=== PATIENT | male | born 1955 | race Caucasian/White ===

== ENCOUNTER → 2018-03-03 08:13 | Outpatient (CLI) | payer BC, MEDICARE, SELFPAY ==
--- NOTE | 2018-03-03 08:30 | MR_ITS ---
MR lumbar spine wo/w con COMPARISON: None HISTORY: Low back pain with vertical locking TECHNIQUE: Standard sagittal and axial sequences were performed along with a myelogram sequence. FINDINGS: There is normal curvature and alignment. The marrow signal is normal in all lumbar vertebrae. There is no evidence of compression fracture. There is decreased signal of the L2-3, L3-4, L4-5 and L5-S1 disc. This is consistent with desiccation. There is disc space narrowing at the L4-5 and L5-S1 levels. There is broad-based diffuse bulging of the annulus fibrosis at the L3-4 level with a small left paracentral disc protrusion combined with hypertrophic facet changes results in bilateral neural foraminal narrowing at this level. This is slightly more pronounced left side than right. The myelogram sequence shows prominent defects of the CSF signal bilaterally at this level. IMPRESSION: Mild multilevel degenerative changes with diffuse disc bulge and focal left paracentral bulge. L3-4 level as described above
[2018-03-03 09:00] LABS: Blood Urea Nitrogen 17 mg/dL (7-18); Creatinine,Serum 0.84 mg/dL (0.70-1.30); Estimated Glomerular Filt Rate 92 ml/min (>60); GFR (African American) 112 ML/MIN (>60)
== END ==
PROVIDERS: Family Provider Family Medicine; Visit Provider Family Medicine
DX: M54.16 Radiculopathy, lumbar region (principal)
CPT/HCPCS: 36415; 72158; 76376; 82565; 84520; A9576

== ENCOUNTER → 2018-03-31 08:51 | Outpatient (POV) | payer BC, MEDICARE, SELFPAY ==
[2018-03-31 09:00] VITALS: BP 184/72; PULSE 78; RESP 18; TEMP 36.6; O2SAT 98
--- NOTE | 2018-03-31 09:27 | HMH.PMCON ---
Assessment and Plan (1) Bursitis Current visit: Yes Status: Chronic Category: Medical Code(s): M71.9 - Bursopathy, unspecified (2) Sacroiliitis Current visit: Yes Status: Chronic Category: Medical Code(s): M46.1 - Sacroiliitis, not elsewhere classified - Assessment and plan all Dx Assessment and Plan for all problems:: We will plan a right SI joint injection along with a right trochanteric bursa injection. I believe that this would be beneficial for the patient patient's tried and failed anti-inflammatories, medications, physical therapy. Patient continues to do home stretching. This note was dictated using voice recognition software and may contain errors or omissions HPI - Data of Consult Consult date: 03/31/18 Requesting Physician: Abida Alcantara APRN Primary Care Provider: Alexander Martin MD Family Provider: Alexander Martin MD - Consult Narrative Reason for consult: Consultation in regards to right hip pain History of present illness: Mr. Willett is a 62 year old male resents today for consultation in regards to his low back and right leg pain. Patient states most of his pain is in his right hip and leg. Patient rates his pain a 5 out of 10 today. Patient states he has numbness and tingling down his right leg at times all the way to his toes. Patient has had cervical and lumbar surgery in the past. Patient has had injections in the lumbar spine without as much relief. Patient has tried and failed physical therapy. Patient also tried Celebrex, Cymbalta, Bonifay, trazodone. Patient states that repositioning does help decrease his pain at times. All activity makes it worse. CC: Abida Alcantara APRN [facility] History I have reviewed the patient's past medical history: Yes Medical History: Reports:: Diabetes Mellitus Type 2, Hyperlipidemia, Hypertension Denies:: Cancer, Diabetes Mellitus Type 1, MRSA Other Medical History: Reports: Arthritis, Thyroid Disease Other Surgeries: Yes: Thyroidectomy Amputation: Yes - *Social History Educational Level: Attended High School Smoking Status: Current every day smoker Tobacco Type: smokeless tobacco Alcohol Intake: never Occupational Status: employed Housing: house Household Members: spouse - Psychiatric History Expresses thoughts of harming self/others: None Suicide Plan Description: No Plan *Family Hx:: Unable to obtain Review of Systems - Review of Systems ROS General: no recent weight change, no fever, no sleep disturbances Respiratory: no cough, no shortness of air, no recurring pulmonary infections Cardiovascular/Peripheral Vascular: No chest pain, No palpitations, no edema, no shortness of breath. Gastrointestinal: no incontinence, normal bowel movements reported Genitourinary: no incontinence Musculoskeletal: Back pain, right hip pain, SI joint pain Psychiatric: normal mood/ affect, [denies depression], [denies anxiety] Neurological: [denies weakness in extremities], [denies balance issues] Meds Allergies Allergy/AdvReac Type Severity Reaction Status Date / Time PCN (PENICILLIN) Allergy Intermediate Uncoded 11/18/17 14:41 SULFA (SULFONAMIDE) Allergy Intermediate Uncoded 11/18/17 14:41 Objective Vital signs: Temp Pulse Resp BP Pulse Ox 97.8 F 78 18 184/72 98 03/31/18 09:00 03/31/18 09:00 03/31/18 09:00 03/31/18 09:00 03/31/18 09:00 Narrative: Physical Exam General: Alert and oriented x3, no acute distress, pleasant and cooperative, [on room air] Lungs: Resps E/U, Symmetrical chest expansion, Eyes: PERRL Musculoskeletal: Flexion and extension of lumbar spine somewhat guarded secondary to pain, deep tendon reflexes normal, strength in upper and lower extremities [5/5], abnormal gait noted, left leg amputation, prosthetic noted, extreme point tenderness over right SI and trochanteric bursa. Positive Higinio's test on the right side Neurological: speech clear,
--- NOTE | 2018-03-31 09:32 | P.CONS_ITS ---
Assessment and Plan (1) Bursitis Current visit: Yes Status: Chronic Category: Medical Code(s): M71.9 - Bursopathy, unspecified (2) Sacroiliitis Current visit: Yes Status: Chronic Category: Medical Code(s): M46.1 - Sacroiliitis, not elsewhere classified - Assessment and plan all Dx Assessment and Plan for all problems:: We will plan a right SI joint injection along with a right trochanteric bursa injection. I believe that this would be beneficial for the patient patient's tried and failed anti-inflammatories, medications, physical therapy. Patient continues to do home stretching. This note was dictated using voice recognition software and may contain errors or omissions HPI - Data of Consult Consult date: 03/31/18 Requesting Physician: Abida Alcantara APRN Primary Care Provider: Alexander Martin MD Family Provider: Alexander Martin MD - Consult Narrative Reason for consult: Consultation in regards to right hip pain History of present illness: Mr. Willett is a 62 year old male resents today for consultation in regards to his low back and right leg pain. Patient states most of his pain is in his right hip and leg. Patient rates his pain a 5 out of 10 today. Patient states he has numbness and tingling down his right leg at times all the way to his toes. Patient has had cervical and lumbar surgery in the past. Patient has had injections in the lumbar spine without as much relief. Patient has tried and failed physical therapy. Patient also tried Celebrex, Cymbalta, Holliday, trazodone. Patient states that repositioning does help decrease his pain at times. All activity makes it worse. CC: Abida Alcantara APRN [facility] History I have reviewed the patient's past medical history: Yes Medical History: Reports:: Diabetes Mellitus Type 2, Hyperlipidemia, Hypertension Denies:: Cancer, Diabetes Mellitus Type 1, MRSA Other Medical History: Reports: Arthritis, Thyroid Disease Other Surgeries: Yes: Thyroidectomy Amputation: Yes - *Social History Educational Level: Attended High School Smoking Status: Current every day smoker Tobacco Type: smokeless tobacco Alcohol Intake: never Occupational Status: employed Housing: house Household Members: spouse - Psychiatric History Expresses thoughts of harming self/others: None Suicide Plan Description: No Plan *Family Hx:: Unable to obtain Review of Systems - Review of Systems ROS General: no recent weight change, no fever, no sleep disturbances Respiratory: no cough, no shortness of air, no recurring pulmonary infections Cardiovascular/Peripheral Vascular: No chest pain, No palpitations, no edema, no shortness of breath. Gastrointestinal: no incontinence, normal bowel movements reported Genitourinary: no incontinence Musculoskeletal: Back pain, right hip pain, SI joint pain Psychiatric: normal mood/ affect, [denies depression], [denies anxiety] Neurological: [denies weakness in extremities], [denies balance issues] Meds Allergies Allergy/AdvReac Type Severity Reaction Status Date / Time PCN (PENICILLIN) Allergy Intermediate Uncoded 11/18/17 14:41 SULFA (SULFONAMIDE) Allergy Intermediate Uncoded 11/18/17 14:41 Objective Vital signs: Temp Pulse Resp BP Pulse Ox 97.8 F 78 18 184/72 98 03/31/18 09:00 03/31/18 09:00 03/31/18 09:00 03/31/18 09:00 03/31/18 09:00 Narrative: Physical
== END ==
PROVIDERS: Family Provider Family Medicine; PCP Family Medicine; Visit Provider Clinical Nurse Specialist Family Health
DX: M71.9 Bursopathy, unspecified (principal); M46.1 Sacroiliitis, not elsewhere classified
CPT/HCPCS: 99202

== ENCOUNTER → 2018-05-05 08:14 | Outpatient (POV) | payer BC, MEDICARE, SELFPAY ==
[2018-05-05 08:38] VITALS: BP 175/78; PULSE 65; RESP 20; O2SAT 99; BMI 31.4
--- NOTE | 2018-05-05 09:19 | HMH.PAINSOAP ---
[facility] Pain Management SOAP Note Subjective:: Patient is a pleasant 62-year-old white male who presents today after right trochanteric bursa injection and right SI joint injection. Patient states it helped for several weeks. Patient states his pain is beginning to return however it is not at the same intensity that it was. Patient is currently on anti-inflammatories. Patient and I discussed potentially doing a lumbar epidural steroid injection however he feels like it would be beneficial to repeat the right bursa and SI joint injection. I agree with him. Patient has had a neurostimulator in the past he is uninterested in this at this time. Patient is unable to take gabapentin. Patient rates his pain a 6 out of 10 today. ROS General: no recent weight change, no fever, no sleep disturbances Respiratory: no cough, no shortness of air, no recurring pulmonary infections Cardiovascular/Peripheral Vascular: No chest pain, No palpitations, no edema, no shortness of breath. Gastrointestinal: no incontinence, normal bowel movements reported Genitourinary: no incontinence Musculoskeletal: Right SI joint pain, right hip pain Psychiatric: normal mood/ affect Neurological: [denies weakness in extremities], [denies balance issues] Objective:: Physical Exam General: Alert and oriented x3, no acute distress, pleasant and cooperative, [on room air] Lungs: Resps E/U, Symmetrical chest expansion, Eyes: PERRL Musculoskeletal: Range of motion right hip somewhat guarded secondary to pain, deep tendon reflexes normal, strength in upper and lower extremities [5/5], [abnormal gait noted], positive Higinio's test on the right side, extreme point tenderness over the right greater trochanteric bursa Neurological: speech clear, entertainment reporter equal, no gross sensory deficits Assessment:: Sacroiliitis, trochanteric bursitis Plan:: We will repeat a right SI joint injection along with a right greater trochanteric bursa injection. I believe this would be beneficial given the efficacy of it in the past. Patient is currently on an anti-inflammatory regimen. Patient's tried and failed physical therapy. Patient is not on any anticoagulation therapy. I will follow-up with this patient after his injection. This note was dictated using voice recognition software and may contain errors or omissions
--- NOTE | 2018-05-05 09:23 | P.CONS_ITS ---
[facility] Pain Management SOAP Note Subjective:: Patient is a pleasant 62-year-old white male who presents today after right trochanteric bursa injection and right SI joint injection. Patient states it helped for several weeks. Patient states his pain is beginning to return however it is not at the same intensity that it was. Patient is currently on anti-inflammatories. Patient and I discussed potentially doing a lumbar epidural steroid injection however he feels like it would be beneficial to repeat the right bursa and SI joint injection. I agree with him. Patient has had a neurostimulator in the past he is uninterested in this at this time. Patient is unable to take gabapentin. Patient rates his pain a 6 out of 10 today. ROS General: no recent weight change, no fever, no sleep disturbances Respiratory: no cough, no shortness of air, no recurring pulmonary infections Cardiovascular/Peripheral Vascular: No chest pain, No palpitations, no edema, no shortness of breath. Gastrointestinal: no incontinence, normal bowel movements reported Genitourinary: no incontinence Musculoskeletal: Right SI joint pain, right hip pain Psychiatric: normal mood/ affect Neurological: [denies weakness in extremities], [denies balance issues] Objective:: Physical Exam General: Alert and oriented x3, no acute distress, pleasant and cooperative, [ on room air] Lungs: Resps E/U, Symmetrical chest expansion, Eyes: PERRL Musculoskeletal: Range of motion right hip somewhat guarded secondary to pain, deep tendon reflexes normal, strength in upper and lower extremities [5/5], [ abnormal gait noted], positive Higinio's test on the right side, extreme point tenderness over the right greater trochanteric bursa Neurological: speech clear, deposition reporter equal, no gross sensory deficits Assessment:: Sacroiliitis, trochanteric bursitis Plan:: We will repeat a right SI joint injection along with a right greater trochanteric bursa injection. I believe this would be beneficial given the efficacy of it in the past. Patient is currently on an anti-inflammatory regimen. Patient's tried and failed physical therapy. Patient is not on any anticoagulation therapy. I will follow-up with this patient after his injection. This note was dictated using voice recognition software and may contain errors or omissions
== END ==
PROVIDERS: Family Provider Family Medicine; PCP Family Medicine; Visit Provider Clinical Nurse Specialist Family Health
DX: M70.61 Trochanteric bursitis, right hip (principal)
CPT/HCPCS: 99212

== ENCOUNTER → 2018-06-08 10:34 | Outpatient (POV) | payer BC, MEDICARE, SELFPAY ==
[2018-06-08 11:06] VITALS: BP 172/84; PULSE 78; RESP 18; O2SAT 99; BMI 31.4
--- NOTE | 2018-06-08 12:00 | HMH.PAINSOAP ---
[facility] Pain Management SOAP Note Subjective:: Patient is a pleasant 62-year-old white male who we are treating for right-sided hip pain. Patient is following up after right SI joint injection and right trochanteric bursa injection. Patient states he got 2 weeks of good relief up to 90% however it is just not lasting. Patient does have an amputation of his left leg and he does have an antalgic gait. Patient and I discussed a rhizotomy of the right SI joint he is interested in this. He rates his pain a 4 out of 10. Patient states that he is unable to take gabapentin he is on Cymbalta however. Patient is on Oxford 5 mg 1 p.o. 3 times daily from his primary care physician. Patient and I also discussed compounding cream. ROS General: no recent weight change, no fever, no sleep disturbances Respiratory: no cough, no shortness of air, no recurring pulmonary infections Cardiovascular/Peripheral Vascular: No chest pain, No palpitations, no edema, no shortness of breath. Gastrointestinal: no incontinence, normal bowel movements reported Genitourinary: no incontinence Musculoskeletal: Right SI joint pain right hip pain Psychiatric: normal mood/ affect Neurological: [denies weakness in extremities], [denies balance issues] Objective:: Physical Exam General: Alert and oriented x3, no acute distress, pleasant and cooperative, [on room air] Lungs: Resps E/U, Symmetrical chest expansion, Eyes: PERRL Musculoskeletal: Flexion and extension of lumbar spine somewhat guarded secondary to pain, deep tendon reflexes normal, antalgic gait, left lower leg amputation. Patient does use prosthetic leg. Patient has a positive Higinio's test on the right side. Neurological: speech clear, art dealer equal, no gross sensory deficits Assessment:: Sacroiliitis, bursitis Plan:: We will schedule RFA of the right SI joint. I believe that this would be beneficial given the patient's good results with the injections. I will follow-up with the patient after his RFA. Patient and I did briefly discuss intrathecal therapy. Patient may be a candidate in the future for this. Patient's tried and failed physical therapy, stretching, anti-inflammatories, medications. I will also order a compounding cream to help with his knee and hip pain. I will follow-up with this patient after his RFA. This note was dictated using voice recognition software and may contain errors or omissions
--- NOTE | 2018-06-08 12:04 | P.CONS_ITS ---
[facility] Pain Management SOAP Note Subjective:: Patient is a pleasant 62-year-old white male who we are treating for right- sided hip pain. Patient is following up after right SI joint injection and right trochanteric bursa injection. Patient states he got 2 weeks of good relief up to 90% however it is just not lasting. Patient does have an amputation of his left leg and he does have an antalgic gait. Patient and I discussed a rhizotomy of the right SI joint he is interested in this. He rates his pain a 4 out of 10. Patient states that he is unable to take gabapentin he is on Cymbalta however. Patient is on Holly 5 mg 1 p.o. 3 times daily from his primary care physician. Patient and I also discussed compounding cream. ROS General: no recent weight change, no fever, no sleep disturbances Respiratory: no cough, no shortness of air, no recurring pulmonary infections Cardiovascular/Peripheral Vascular: No chest pain, No palpitations, no edema, no shortness of breath. Gastrointestinal: no incontinence, normal bowel movements reported Genitourinary: no incontinence Musculoskeletal: Right SI joint pain right hip pain Psychiatric: normal mood/ affect Neurological: [denies weakness in extremities], [denies balance issues] Objective:: Physical Exam General: Alert and oriented x3, no acute distress, pleasant and cooperative, [ on room air] Lungs: Resps E/U, Symmetrical chest expansion, Eyes: PERRL Musculoskeletal: Flexion and extension of lumbar spine somewhat guarded secondary to pain, deep tendon reflexes normal, antalgic gait, left lower leg amputation. Patient does use prosthetic leg. Patient has a positive Higinio's test on the right side. Neurological: speech clear, dictaphone mechanic equal, no gross sensory deficits Assessment:: Sacroiliitis, bursitis Plan:: We will schedule RFA of the right SI joint. I believe that this would be beneficial given the patient's good results with the injections. I will follow- up with the patient after his RFA. Patient and I did briefly discuss intrathecal therapy. Patient may be a candidate in the future for this. Patient's tried and failed physical therapy, stretching, anti-inflammatories, medications. I will also order a compounding cream to help with his knee and hip pain. I will follow-up with this patient after his RFA. This note was dictated using voice recognition software and may contain errors or omissions
== END ==
PROVIDERS: Family Provider Family Medicine; PCP Family Medicine; Visit Provider Clinical Nurse Specialist Family Health
DX: M70.61 Trochanteric bursitis, right hip (principal)
CPT/HCPCS: 99212

== ENCOUNTER → 2018-07-20 09:59 | Outpatient (POV) | payer BC, MEDICARE, SELFPAY ==
[2018-07-20 10:07] VITALS: BP 167/74; PULSE 72; RESP 18; O2SAT 98; BMI 31.4
--- NOTE | 2018-07-20 10:35 | HMH.PAINSOAP ---
[facility] Pain Management SOAP Note Subjective:: Patient is a pleasant 62-year-old white male who we are treating for chronic right-sided sacroiliitis. Patient states that after his radio frequency ablation of the right SI joint he has had worsening pain. Patient has tried and failed a neurostimulator. I did talk to him about maybe getting a consultation in regards to a SI joint fusion. Patient does not know if he wants to proceed with this. He rates his pain a 9 out of 10 today. ROS General: no recent weight change, no fever, no sleep disturbances Respiratory: no cough, no shortness of air, no recurring pulmonary infections Cardiovascular/Peripheral Vascular: No chest pain, No palpitations, no edema, no shortness of breath. Gastrointestinal: no incontinence, normal bowel movements reported Genitourinary: no incontinence Musculoskeletal: SI joint pain Psychiatric: normal mood/ affect, Neurological: [denies weakness in extremities], [denies balance issues] Objective:: Physical Exam General: Alert and oriented x3, no acute distress, pleasant and cooperative, [on room air] Lungs: Resps E/U, Symmetrical chest expansion, Eyes: PERRL Musculoskeletal: Flexion and extension of lumbar spine somewhat guarded secondary to pain, deep tendon reflexes normal, strength in upper and lower extremities [5/5], [abnormal gait noted] Neurological: speech clear, drug abuse resistance education officer equal, no gross sensory deficits Assessment:: Chronic sacroiliitis Plan:: We will follow-up with this patient on an as-needed basis. I gave him the option to be referred for a surgical consult. Patient does not know if he would go forward with this. Patient states he is tried and failed a neurostimulator. We will call him in a [employer] Dosepak to see if this helps him with his increased pain. This note was dictated using voice recognition software and may contain errors or omissions
--- NOTE | 2018-07-20 10:38 | P.CONS_ITS ---
[facility] Pain Management SOAP Note Subjective:: Patient is a pleasant 62-year-old white male who we are treating for chronic right-sided sacroiliitis. Patient states that after his radio frequency ablation of the right SI joint he has had worsening pain. Patient has tried and failed a neurostimulator. I did talk to him about maybe getting a consultation in regards to a SI joint fusion. Patient does not know if he wants to proceed with this. He rates his pain a 9 out of 10 today. ROS General: no recent weight change, no fever, no sleep disturbances Respiratory: no cough, no shortness of air, no recurring pulmonary infections Cardiovascular/Peripheral Vascular: No chest pain, No palpitations, no edema, no shortness of breath. Gastrointestinal: no incontinence, normal bowel movements reported Genitourinary: no incontinence Musculoskeletal: SI joint pain Psychiatric: normal mood/ affect, Neurological: [denies weakness in extremities], [denies balance issues] Objective:: Physical Exam General: Alert and oriented x3, no acute distress, pleasant and cooperative, [ on room air] Lungs: Resps E/U, Symmetrical chest expansion, Eyes: PERRL Musculoskeletal: Flexion and extension of lumbar spine somewhat guarded secondary to pain, deep tendon reflexes normal, strength in upper and lower extremities [5/5], [abnormal gait noted] Neurological: speech clear, mail room clerk equal, no gross sensory deficits Assessment:: Chronic sacroiliitis Plan:: We will follow-up with this patient on an as-needed basis. I gave him the option to be referred for a surgical consult. Patient does not know if he would go forward with this. Patient states he is tried and failed a neurostimulator. We will call him in a [employer] Dosepak to see if this helps him with his increased pain. This note was dictated using voice recognition software and may contain errors or omissions
== END ==
PROVIDERS: Family Provider Family Medicine; PCP Family Medicine; Visit Provider Clinical Nurse Specialist Family Health
DX: M46.1 Sacroiliitis, not elsewhere classified (principal)
CPT/HCPCS: 99213

== ENCOUNTER → 2018-11-16 08:51 | Outpatient (CLI) | payer BC, MEDICARE, SELFPAY ==
[2018-11-16 11:20] LABS: Prostate Specific Ag, Diagnost < 0.05 ng/mL (0.0-4.0)
== END ==
PROVIDERS: PCP Family Medicine; Visit Provider Urology
DX: C61 Malignant neoplasm of prostate (principal)
CPT/HCPCS: 36415; 84153

== ENCOUNTER → 2019-01-18 08:46 | Outpatient (CLI) | payer BC, MEDICARE, SELFPAY ==
[2019-01-20 07:47] LABS: PSA, Free <0.01 ng/mL; Prostate Specific Ag <0.1 ng/mL (0.0-4.0)
== END ==
PROVIDERS: Visit Provider Urology
DX: C61 Malignant neoplasm of prostate (principal)
CPT/HCPCS: 36415; 84153; 84154

== ENCOUNTER → 2019-01-27 12:55 | Outpatient (CLI) | payer BC, MEDICARE, SELFPAY ==
--- NOTE | 2019-01-27 13:07 | XR_ITS ---
XR hip RT 2-3V w/pelvis HISTORY: ITS.REASON: right hip pain ORDERING PHYSICIAN: Yana Reed MD PATIENT AGE: 63 years COMPARISON: 05/23/2017 FINDINGS: No fracture or dislocation is evident. No significant degenerative change. No lytic or blastic change. Unremarkable soft tissues IMPRESSION: Negative hip . No change with no acute finding
== END ==
PROVIDERS: PCP Family Medicine; Visit Provider Orthopaedic Surgery
DX: M25.551 Pain in right hip (principal)
CPT/HCPCS: 73502

== ENCOUNTER → 2019-04-15 13:05 | Outpatient (CLI) | payer BC, MEDICARE, SELFPAY ==
[2019-04-15 16:44] LABS: Prostate Specific Ag, Diagnost 0 ng/mL (0.0-4.0)
== END ==
PROVIDERS: Visit Provider Urology
DX: C61 Malignant neoplasm of prostate (principal)
CPT/HCPCS: 36415; 84153

== ENCOUNTER → 2019-05-13 08:56 | Outpatient (CLI) | payer BC, MEDICARE, SELFPAY ==
[2019-05-17 03:13] LABS: Testosterone, Total, LC/MS 122.4 ng/dL (264.0-916.0)
== END ==
PROVIDERS: Visit Provider Family Medicine
DX: E29.1 Testicular hypofunction (principal)
CPT/HCPCS: 36415; 84403

== ENCOUNTER → 2019-07-14 09:28 | Outpatient (CLI) | payer BC, MEDICARE, SELFPAY ==
[2019-07-14 17:03] LABS: Prostate Specific Ag, Diagnost < 0.05 ng/mL (0.0-4.0)
== END ==
PROVIDERS: Visit Provider Urology
DX: C61 Malignant neoplasm of prostate (principal)
CPT/HCPCS: 36415; 84153

== ENCOUNTER → 2019-10-08 13:10 | Outpatient (CLI) | payer BC, MEDICARE, SELFPAY ==
[2019-10-08 14:54] LABS: Prostate Specific Ag, Diagnost 0 ng/mL (0.0-4.0)
== END ==
PROVIDERS: Visit Provider Urology
DX: C61 Malignant neoplasm of prostate (principal)
CPT/HCPCS: 36415; 84153

== ENCOUNTER → 2019-11-02 06:30 | Outpatient (CLI) | payer BC, MEDICARE, SELFPAY ==
--- NOTE | 2019-11-02 | CA_ITS ---
APPROVED REPORT Exam: Pharmacologic Technologist: Cele Mason Ht: 5 ft 11 in Wt: 230 lbs BSA: 2.24 m2 HR: 63 bpm BP: 157/62 mmHg Indications: Chest pain, Palpitations Medical History Medications: Amlodipine,,,,, Trazadone,,,,, Losartan,,,,, Atorvastatin,,,,, Wendel,,,,, Cymbalta,,,,, CeleBREX,,,,, Novalog,,,,, LeveMIR,,,,, Stress Test Details Test: LEXISCAN HR Resting HR: 61 bpm Max Heart Rate (APMHR): 155 bpm Max HR Achieved: 85 bpm Target HR (85% APMHR): 131 bpm % of APMHR: 54 Recovery HR: 74 bpm BP Resting BP: 157.0/62.0 mmHg Max BP: 176.0/70.0 mmHg Recovery BP: 171.0/78.0 mmHg ECG Clinical Exercise duration: 04:02 min Highest Stage Achieved: Exercise capacity: 1.0 METs Stress ECG Conclusion Resting ECG: Normal sinus rhythm, NS ST-T abnormalities inferiorly. Symptoms: Mild shortness of air and malaise. No chest pain. Arrhythmias/Ectopy: None ST-T Changes: No significant changes. Conclusion: Unremarkable Lexiscan stress. Myoview images reported separately. Electronically signed by : Mike Gonzales, 11/03/2019 06:07:09
--- NOTE | 2019-11-02 06:32 | NM_ITS ---
APPROVED REPORT Exam: Nuclear Stress Test Indication: Chest pain, SOB, Fatigue, HTN, DM, High cholesterol, Family history Patient Location: Outpatient Stress Tech: Cele Mason CO Tech:Berta Calderon, ARRT, RT (R)(N) Ht: 5 ft 11 in Wt: 230 lbs HR: 63 bpm BP: 157/62 mmHg BSA: 2.24 m2 BMI: 32.0 History: Chest pain, SOB, Fatigue, HTN, DM, High cholesterol, Family history Procedure: Patient received a 0.4 mg of intravenous Lexiscan, resting heart rate 63 bpm, resting blood pressure 157/62 mmHg, with Lexiscan maximum heart rate achived was 81 bpm which is Less than 85 % of the maximum predicted heart rate and blood pressure was 176/70 mmHg. With Lexiscan, patient denied any complaint of chest pain. Electrocardiogram Resting electrocardiogram showed sinus rhythm, with Lexiscan there is less than 1.[address] segment depression noted from the baseline EKG. The EKG portion of the Lexiscan Myoview is nondiagnostic. Cardiac Stress and Resting SPECT Images: Cardiac Stress and Resting SPECT images were obtained using technetium 99m Myoview 31.4 mCi stress and 10.04 mCi at rest. Gated SPECT for analysis of segmental wall motion and calculation of the ejection fraction also done. Cardiac stress and resting SPECT images show uniform myocardial activity without segmental perfusion abnormality, computer derived ejection fraction 65% with no regional wall motion abnormality, right ventricle is normal size and contractility. Conclusion: 1. The EKG portion of the Lexiscan Myoview is nondiagnostic. 2. No scintigraphic evidence of reversible ischemia seen, computer derived ejection fraction 65% with no regional wall motion abnormality, right ventricle is normal size and contractility. 3. Normal Lexiscan Myoview study. Electronically signed by : Mike Gonzales, 11/03/2019 06:09:03
--- NOTE | 2019-11-02 07:32 | HMH.ITSHM ---
Current Home Medications as stated by this patient Cesar Willett or physician relations representative. []NOVALOG LEVEMIR CELEBREX CYMBALTA AMLODIPINE NORCO TRAZODONE LOSARTAN ATORVASTATIN
== END ==
PROVIDERS: PCP Family Medicine; Visit Provider Family Medicine
DX: R07.9 Chest pain, unspecified (principal)
CPT/HCPCS: 78452; 93017; A9502; J2785

== ENCOUNTER 2020-05-19 08:17 | Observation (INO) | payer BC, MEDICARE, SELFPAY ==
[2020-05-19] VITALS (27 sets, daily range): BP systolic 131–193; BP diastolic 60–94; PULSE 69–89; RESP 17–23; TEMP 36.8–43; O2SAT 87–97; BMI 30.7
--- NOTE | 2020-05-19 08:34 | CT_ITS ---
PROCEDURE: CT ABDOMEN PELVIS WO CON CLINICAL INDICATION: RT SIDE ABD PAIN COMPARISON: No exams were available for comparison TECHNIQUE: Axial images obtained with sagittal and coronal reformats. All CT scans at the facility use one or more dose reduction, viz: automated exposure control, ma/kV adjustment per patient size (including targeted exams where dose is matched to indication, i.e. head), or iterative reconstruction technique. FINDINGS: Lower thorax: There is minimal atelectasis or scarring lateral basilar segment right lower lobe. There is mild generalized cardiomegaly. There is no pleural fluid. ABDOMEN: Liver: There is mild diffuse fatty infiltration, no focal lesions. Gallbladder: The gallbladder is moderately distended with no definite gallstones or biliary sludge. However there are 2 small calculi within the cystic duct. There is some mild diffuse haziness of the gallbladder wall as well. Pancreas: No masses or peripancreatic fluid collections. Spleen: unremarkable Adrenals: unremarkable Kidneys/ureters: The kidneys are normal in size and no calculi and there is no obstructive uropathy. There is a tiny benign-appearing cortical cyst upper pole right kidney. ABDOMEN & PELVIS: Stomach bowel: There is a small sliding hiatal hernia. The stomach appears normal. There is mild diffuse dilatation of the duodenal sweep. However the small bowel appears grossly normal. There is a moderate amount stool in the cecum ascending and proximal transverse colon. There is some redundancy of the cecum and lower ascending colon. There is mild gaseous dilatation of the mid transverse colon. There is large amount stool in the rectum. Peritoneum: No abnormal fluid collections. No obvious inflammatory changes. No free air. There is a small umbilical hernia containing fat only. Lymph nodes: No enlarged lymph nodes apparent. Vasculature: No evidence of abdominal aortic aneurysm. No retroperitoneal hemorrhage evident. Bones: No acute fracture there is mild diffuse dextroscoliotic curvature of the thoracolumbar junction. PELVIS: Reproductive: unremarkable Bladder: The bladder is partially decompressed but otherwise appears normal. Appendix: Not definitely visualized but there are no findings to suggest appendicitis. IMPRESSION: So small cystic duct calculi with probable early acute cholecystitis, the dilated duodenal sweep probably is due to a mild reflex ileus. Dictated by: Dr. Beny Lopez MD 05/19/2020 09:[address] Beny Lopez MD in [place] 05/19/2020 09:39
--- NOTE | 2020-05-19 08:51 | PC.NURSE ---
NOTIFIED RAD OF CT
[2020-05-19 08:55] LABS: Basophils # 0.1 K/mm3 (0-0.2); Basophils % 0.3 % (0.1-2.0); Eosinophils # 0.2 K/mm3 (0.0-0.4); Eosinophils % 0.8 % (0.1-12.0); Hematocrit 42.9 % (42.0-52.0); Lymphocytes # 0.8 K/mm3 (0.7-4.5); Lymphocytes % 3.5 % (10-50); Mean Corpuscular Hemoglobin 32.4 pg (27.0-31.2); Mean Corpuscular Volume 92.3 fl (80-94); Mean Platelet Volume 7.4 fl (7.4-10.4); Monocytes % 4.5 % (1.7-9.3); Neutrophils # 19.9 K/mm3 (1.8-7.8); Platelet Count 272 K/mm3 (142-424); Red Blood Count 4.64 M/mm3 (4.60-6.20); Red Cell Distribution Width 12.9 % (11.5-17.5); White Blood Count 21.9 K/mm3 (4.8-10.8)
[2020-05-19 08:58] LABS: Chloride 106 mmol/L (98-107); Sodium 137 mmol/L (136-145)
[2020-05-19 08:59] LABS: Potassium 3.9 mmoL/L (3.5-5.1)
[2020-05-19 09:00] LABS: MANUAL DIFFERENTIAL MANUAL DIFFERENTIAL (MANUAL DIFF)
[2020-05-19 09:01] LABS: Alanine Aminotransferase 35 U/L (12-78); Alkaline Phosphatase 90 U/L (38-126); Amylase 37 U/L (30-110); Anion Gap 11.9 mEq/L (5-15); Aspartate Amino Transferase 29 U/L (17-59); Bilirubin,Total 1.3 mg/dl (0.2-1.3); Blood Urea Nitrogen 12 mg/dl (9-20); Carbon Dioxide 23 mmol/L (22.0-30.0); Creatinine Clearance Estimated 104 mL/min (50-200); Estimated Glomerular Filt Rate 113 ml/min (>60); GFR (African American) 137 ML/MIN (>60)
[2020-05-19 09:02] LABS: Albumin Level 4.2 g/dl (3.5-5.0); Albumin/Globulin Ratio 1.4 (1.1-1.8); Calcium 9.1 mg/dl (8.4-10.2); Glucose 255 mg/dl (74-100); Lipase 37 U/L (23-300); Total Protein,Serum 7.2 g/dl (6.3-8.2)
--- NOTE | 2020-05-19 09:02 | PC.NURSE ---
Pt to rad.
[2020-05-19 09:13] LABS: Lymphocytes % 6 % (10-50); Monocytes % 3 % (2-9); Neutrophils % 91 % (42-76); Total Cells Counted 100
[2020-05-19 09:14] LABS: Platelet Estimate Normal; RBC Morphology Normal
--- NOTE | 2020-05-19 09:56 | PC.NURSE ---
Spoke with Dr Shell now on with Dr Martin
--- NOTE | 2020-05-19 09:57 | HMH.EDABDPAI ---
ED Disposition Clinical Impression: Cholangitis Disposition: Admitted as Observation Condition on Discharge: Good Instructions: DI for Acute Abdomen Referrals: Alexander Martin MD [Primary Care Provider] - - Critical Care Critical Care Time: No Attestation: On 05/19/20, the high probability of a clinically significant, sudden or life threatening deterioration of the following system(s) required my full and direct attention, intervention and personal management. The time I documented below is in addition to time spent performing reported procedures but includes the following listed in this critical care notation. Medical Decision Making - Medical Records Medical records reviewed: Yes: I reviewed the patient's medical records. - Arslan Inquiry Pt receiving controlled substance: No Vital Signs: 05/19/20 08:19 Temperature 99.1 F Temperature Source Oral Pulse Rate [Right Radial] 88 Respiratory Rate 18 Blood Pressure [Right Arm] 186/83 H Blood Pressure Mean [Right Arm] 117 Blood Pressure Source [Right Arm] Automatic Cuff Blood Pressure Position [Right Arm] Supine 02 Sat by Pulse Oximetry 97 Oxygen Delivery Method Room Air - Lab Data Lab results reviewed: Yes: I reviewed the patient's lab results. Lab Results 05/19/20 08:42: WBC 21.9 H*, RBC 4.64, Hgb 15.0, Hct 42.9, MCV 92.3, MCH 32.4 H, MCHC 35.0, RDW 12.9, Plt Count 272, MPV 7.4, Neut % (Auto) 91.0 H, Lymph % (Auto) 3.5 L, Crowley % (Auto) 4.5, Eos % (Auto) 0.8, Baso % (Auto) 0.3, Neut # (Auto) 19.9 H, Lymph # (Auto) 0.8, Crowley # (Auto) 1.0, Eos # (Auto) 0.2, Baso # (Auto) 0.1, Total Counted 100, Neutrophils % (Manual) 91 H, Lymphocytes % (Manual) 6 L, Monocytes % (Manual) 3, Platelet Estimate Normal, RBC Morphology Normal 05/19/20 08:42: Sodium 137, Potassium 3.9, Chloride 106, Carbon Dioxide 23, Anion Gap 11.9, BUN 12, Creatinine 0.70, Estimated Creat Clear 104, Estimated GFR 113, Est GFR ( Amer) 137, Glucose 255 H, Calcium 9.1, Total Bilirubin 1.3, AST 29, ALT 35, Alkaline Phosphatase 90, Total Protein 7.2, Albumin 4.2, Globulin 3.0, Albumin/Globulin Ratio 1.4, Amylase 37, Lipase 37 Result diagrams: 05/19/20 08:42 05/19/20 08:42 Orders (Tests/Meds): ED MEDICATIONS Discontinued Medications Generic Name Dose Route Start Last Admin Trade Name Damien PRN Reason Stop Dose Admin Sodium Chloride 1,000 mls @ 999 mls/hr 05/19/20 08:36 05/19/20 08:50 Sod Chlor 0.9% 1000ml Bag IV 05/19/20 09:36 999 mls/hr .Q1H1M ONE Administration Ketorolac Tromethamine 30 mg 05/19/20 08:36 05/19/20 08:50 Toradol 30mg/Ml Vial IV 05/19/20 08:37 30 mg ONCE ONE Administration Morphine Sulfate 4 mg 05/19/20 09:13 05/19/20 09:17 Morphine 4mg/Ml Syringe IV 05/19/20 09:14 4 mg ONCE ONE Administration Ondansetron HCl 4 mg 05/19/20 08:36 05/19/20 08:50 Zofran 4mg/2ml Vial IV 05/19/20 08:37 4 mg ONCE ONE Administration ORDERS Category Date Time Status Urinalysis and Microscopic Stat Lab 05/19/20 08:34 Ordered - CT Data CT Scan: Abdomen, Pelvis Time Received: 10:[address] Reviewed: Yes: I have viewed the radiologist's interpretation Preliminary Findings: Abnormal (Cholangitis) Medical Decision Narrative: Spoke to Dr. Shell he agreed to consult on this patient. I also spoke to Dr. Martin for admission. Abdominal Pain HPI - General Chief Complaint: Abdominal Pain Stated Complaint: fever vomiting pain Time Seen by Provider: 05/19/20 09:00 Mode of Arrival: Ambulatory Source of Information: Patient Limitations: No Limitations Description of Symptoms (Recalled from ER Triage Doc. by RN): PT C/O RT SIDE ABD PAIN X2 DAYS ASSOCIATED WITH N/V AND FEVER - History of Present Illness HPI narrative: 64-year-old gentleman presents the ED with an acute onset of right upper quadrant abdominal pain. He states that he has felt fatigued and had subjective fevers for 2 days and had some vague abdominal pain abdiaziz
--- NOTE | 2020-05-19 10:00 | PC.NURSE ---
Jessica from OR called Dr Shell requesting rapid COVID test , pre req for surgery
[2020-05-19 10:22] LABS: Adenovirus,PCR Not Detected (NotDetected); Bordetella Pertussis Not Detected (NotDetected); Chlamydophila Pneumoniae, PCR Not Detected (NotDetected); Coronavirus 19, PCR Not Detected (NotDetected); Coronavirus 229E Not Detected (NotDetected); Coronavirus NL63 Not Detected (NotDetected); Coronavirus OC43 Not Detected (NotDetected); Coronovirus HKU1,PCR Not Detected (NotDetected); Human Metapneumovirus Not Detected (NotDetected); Influenza A, PCR Not Detected (NotDetected); Influenza AH1, 2009 Not Detected (NotDetected); Influenza AH1, PCR Not Detected (NotDetected); Influenza AH3,PCR Not Detected (NotDetected); Influenza B, PCR Not Detected (NotDetected); Mycoplasma Pneumoniae, PCR Not Detected (NotDected); Parainfluenza 1, PCR Not Detected (NotDetected); Parainfluenza 2, PCR Not Detected (NotDetected); Parainfluenza 3, PCR Not Detected (NotDetected); Parainfluenza 4, PCR Not Detected (NotDetected); Respiratory Syncytial Virus Not Detected (NotDetected); Rhinovirus/Enterovirus Not Detected (NotDetected)
--- NOTE | 2020-05-19 10:35 | PC.NURSE ---
Dr horvath speaking to Dr Cardenas at this time.
--- NOTE | 2020-05-19 12:17 | PC.NURSE ---
Pt to surgery
--- NOTE | 2020-05-19 12:20 | PC.NURSE ---
Report called to [facility]. Surgery here to take patient.
[2020-05-19 12:47] LABS: POC Glucose,Bedside 144 (70-110)
--- NOTE | 2020-05-19 12:47 | P.PN_ITS ---
[facility] Anesthesia Checklist - Patient Identification Patient Identification: Arm Band - Structural Data Admitted From: Home Planned Operative Procedure/s: laparoscopic cholecystectomy Consent for Planned Operative Procedure(s) Verified: Yes Verified Documents: Surgical Consent, History and Physical - NPO Status Verified Time NPO: 00:00 - Additional verifications Anesthesia Reactions: No - Airway Assessment C-Spine Mobility Assessed: Yes (mp2) TMJ Mobility Assessed: Yes Dentition: Good Dentition - Neurological Assessment Level of Consciousness: Awake, Alert - Anesthesia Plan Anesthesia Risk discussed: Yes Anesthesia Plan: Verified ASA Class: III Anesthesia Type: General [facility] History I have reviewed the patient's past medical history: Yes Medical History: Reports:: Anxiety, Depression, Diabetes Mellitus Type 1, Hyper lipidemia, Hypertension, Lung Disease (pulmonary fibrosis) Denies:: Cancer, Diabetes Mellitus Type 2, MRSA, Seizures *Have you ever received a pneumonia vaccine?: No *Have you received a flu vaccine this season?: No Other Medical History: Reports: Arthritis, Sinus Problems, Thyroid Disease Anesthesia experience/problems:: nac Laterality Cases: Bilateral: Tonsillectomy, Other Other Surgeries: Yes: Cancer Surgery, Colonoscopy, Thyroidectomy, Other Amputation: Yes - *Social History Smoking Status: Former smoker Tobacco Type: cigarettes Alcohol Intake: never Substance Use Type: denies use *Occupational Status:: retired Housing: house Household Members: spouse *Travel in the last 8 weeks: None Family Hx:: No significant family history
--- NOTE | 2020-05-19 13:06 | HMH.PHAVTE ---
[facility] Pharmacy VTE Monitoring - Patient Demographics Admission date: 05/19/20 Report Date: 05/19/20 Time: 13:06 Allergies/Adverse Reactions: Patient Allergies Penicillins Allergy (Intermediate, Verified 11/02/19 07:55) Unknown allergy reaction Sulfa (Sulfonamide Antibiotics) Allergy (Intermediate, Verified 11/02/19 07:55) Unknown allergy reaction Height: 1.8 m Weight: 99.79 kg Patient Problems: Current Active Problems Cholangitis (Acute) - VTE Risk Labs: VTE Related Lab Results Hgb 15.0 g/dL (14.1-18.0) 05/19/20 08:42 Hct 42.9 % (42.0-52.0) 05/19/20 08:42 Plt Count 272 K/mm3 (142-424) 05/19/20 08:42 BUN 12 mg/dl (9-20) 05/19/20 08:42 Creatinine 0.70 mg/dl (0.66-1.25) 05/19/20 08:42 Estimated Creat Clear 104 mL/min (50-200) 05/19/20 08:42 - Prophylaxis VTE Prophylaxis Ordered?: Yes Types of VTE Prophylaxis: TEDS Knee High Location of Applied Device: Bilateral Lower Extremeties - VTE Diagnosis Confirmed Treatment or plan recommended: Continue Current Treatment
--- NOTE | 2020-05-19 13:22 | HMH.PHAINT ---
MEDICATION RECONCILIATION COMPLETED ON PATIENT USING LIST FROM [facility] OFFICE AND EXTERNAL FILL HISTORY FROM PHARMACY. -FRANKLYN LOZOYAD
--- NOTE | 2020-05-19 15:12 | HMH.GSCON ---
*Admission Date: 05/19/20 *Reason for consult:: Cholecystitis *History of present illness: This is a 64-year-old gentleman who presents emergency department with increasing upper abdominal pain and nausea/vomiting. He had a significant leukocytosis. A CT scan of his abdomen and pelvis revealed changes consistent with acute cholecystitis. His liver function studies were essentially normal. The surgical service was consulted for evaluation and management. The patient was admitted to his primary care provider secondary to multiple comorbid medical conditions. Review of Systems - Constitutional Denies chills - Eyes Denies change in vision - ENT Denies difficulty swallowing - *Cardiovascular Denies chest pain - *Respiratory Denies cough - *Gastrointestinal Reports abdominal pain, Reports nausea, Reports vomiting - *Genitourinary Denies difficulty urinating - *Musculoskeletal Denies muscle cramps - Integumentary/Breasts Denies lesions - *Neurologic Denies abnormal movements - Psychiatric Denies anxiety - Endocrine Denies cold intolerance - Hematologic/Lymphatic Denies easy bleeding - Allergic/Immunologic Denies GI upset with certain foods [facility] History Medical History: Reports:: Anxiety, Depression, Diabetes Mellitus Type 1, Hyperlipidemia, Hypertension, Lung Disease (pulmonary fibrosis) Denies:: Cancer, Diabetes Mellitus Type 2, MRSA, Seizures *Have you ever received a pneumonia vaccine?: No *Have you received a flu vaccine this season?: No Other Medical History: Reports: Arthritis, Sinus Problems, Thyroid Disease Anesthesia experience/problems:: nac Laterality Cases: Bilateral: Tonsillectomy, Other Other Surgeries: Yes: Cancer Surgery, Colonoscopy, Thyroidectomy, Other Amputation: Yes - *Social History Smoking Status: Former smoker Tobacco Type: cigarettes Alcohol Intake: never Substance Use Type: denies use *Occupational Status:: retired Housing: house Household Members: spouse *Travel in the last 8 weeks: None - Psychiatric History Pschychiatric History:: Reports:: Anxiety, Depression Family Hx:: No significant family history Meds Home Medications Medication Instructions Recorded Confirmed Type Atorvastatin Calcium [Atorvastatin 40 mg PO HS 03/31/18 05/19/20 History 40mg Tab] Celecoxib [CeleBREX 100mg Capsule] 200 mg PO DAILY 03/31/18 05/19/20 History Duloxetine HCl [Cymbalta 30mg 60 mg PO DAILY 03/31/18 05/19/20 History capsule] Insulin Aspart [Novolog Flexpen] 15 - 20 units SQ TID 03/31/18 05/19/20 History Insulin Detemir [Levemir 45 units SQ BID 03/31/18 05/19/20 History 100units/mL 3mL flexpen] hydroCHLOROthiazide [HCTZ 25mg 25 mg PO DAILY PRN 03/31/18 05/19/20 History tab] Amlodipine Besylate [Amlodipine 10 mg PO DAILY 05/19/20 05/19/20 History 10mg Tab] Hydrocodone/Acetaminophen [Higden 1 tab PO TID PRN 05/19/20 05/19/20 History 7.5-325 Tablet] Losartan Potassium [Cozaar 100mg 100 mg PO DAILY 05/19/20 05/19/20 History Tablets] Trazodone HCl 100 mg PO HS 05/19/20 05/19/20 History Allergies Allergy/AdvReac Type Severity Reaction Status Date / Time Penicillins Allergy Intermediate Unknown Verified 11/02/19 07:55 allergy reaction Sulfa (Sulfonamide Allergy Intermediate Unknown Verified 11/02/19 07:55 Antibiotics) allergy reaction Exam Vital signs and Labs for Last 24 Hours: Temp Pulse Resp BP Pulse Ox 99.1 F 89 18 149/70 H 93 L 05/19/20 12:19 05/19/20 12:19 05/19/20 12:05/19/20 12:05/19/20 11:37 Laboratory Results - last 24 hr 05/19/20 08:42: WBC 21.9 H*, RBC 4.64, Hgb 15.0, Hct 42.9, MCV 92.3, MCH 32.4 H, MCHC 35.0, RDW 12.9, Plt Count 272, MPV 7.4, Neut % (Auto) 91.0 H, Lymph % (Auto) 3.5 L, Converse % (Auto) 4.5, Eos % (Auto) 0.8, Baso % (Auto) 0.3, Neut # (Auto) 19.9 H, Lymph # (Auto) 0.8, Converse # (Auto) 1.0, Eos # (Auto) 0.2, Baso # (Auto) 0.1, Total Counted 100, Neutrophils % (Manual
--- NOTE | 2020-05-19 15:17 | P.OP_ITS ---
Date of procedure: 05/19/20 Pre-op Diagnosis:: Acute cholecystitis Post-op Diagnosis:: Acute cholecystitis (gangrenous) Procedure performed:: Laparoscopic cholecystectomy Surgeon:: Howie Shell MD SPECIAL TECHNICAL OPERATIONS OFFICER:: Karlo Donis Anesthesia: GINNY Estimated blood loss (mL): 50 Operative findings:: Severe acute cholecystitis with patchy gangrenous changes Control of infundibulum with Endoloops secondary to severe thickening and gangrenous changes Jimbo-Condon drains (x2) placed in gallbladder fossa Operative note:: After informed consent was obtained, the patient was taken to the operating room and placed in the supine position. General anesthesia was induced and the abdomen was prepped and draped in a sterile fashion. After infiltration with local anesthetic an infraumbilical incision was made. A Veress needle was placed in position. The abdomen was insufflated. A 5 mm optical trocar was placed in position. Under direct visualization, a 12 mm trocar was placed in the subxiphoid position and 2 additional 5 mm trocars were placed in the right upper quadrant. Severe pericholecystic fat stranding was noted. Careful dissection was utilized to free the gallbladder dome from adhesed omentum. Evaluation of gallbladder revealed severe distention and gangrenous cholecystitis. The gallbladder was decompressed to facilitate maneuvering. The gallbladder was elevated up and over the liver margin. The tissue around the cystic duct was severely thickened and inflamed. Patchy gangrenous changes noted throughout this region. Combination of blunt dissection and dissection with harmonic kolton was utilized to free the infundibular region. The decision was made to proceed with a dome down approach secondary to severe thickening and gangrene. To improve angulation the midportion of the gallbladder was transected and the proximal gallbladder was freed from surrounding tissue. Endoloops (x2) were then placed over this portion of the gallbladder to control the infundibular stump. The remaining infundibular tissue was then transected with harmonic kolton and placed in a retrieval bag. It was removed through the subxiphoid trocar site. The gallbladder dome was then from the liver margin utilizing harmonic kolton. The gallbladder dome was then placed in a a retrieval bag and removed through the subxiphoid trocar site. The right upper quadrant was thoroughly irrigated. No active bleeding or bile leak was noted. #10 flat Jimbo-Condon drains were then placed in the gallbladder fossa and exited through the right upper quadrant 5 mm trocar sites. Fascia at the subxiphoid trocar site was reapproximated utilizing 0 Ethibond. The remaining trocars were removed. All wounds were irrigated and skin was closed with 4-0 Monocryl in a subcuticular fashion. Steri-Strips were applied. The patient's anesthetic agents were reversed and extubation was completed prior to transfer to recovery in stable condition. Condition: stable Disposition: PACU Specimens:: Gallbladder Complications:: No immediate
--- NOTE | 2020-05-19 15:18 | P.PN_ITS ---
[facility] Anesthesia Record Part I Intake, IV Amount: 1,450 Estimated blood loss (mL): 10 Urine output (mL): 0 Blood Products used (#): none Blood Pressure: 135/73 SaO2: 90 Pulse Rate: 76 Respiratory Rate: 18 Temperature: 98.7 F Patient is:: Drowsy, Nasal O2, Stable Stable to PACU at:: 15:14
--- NOTE | 2020-05-19 15:56 | HMH.HP ---
*Admission Date: 05/19/20 <RosangelaLeigha - 05/19/20 16:06> *Chief complaint: abdominal pain <Leigha Adames 05/19/20 16:06> *History of present illness: Cesar states he started 3 days ago with right upper quadrant pain that radiated to his chest and into his mid back. This was associated intermittently with nausea and vomiting. He has been able to eat and drink some over the past 3 days. Bowels have been moving but somewhat irregular. He started running fever today and his pain worsened and he presented to the emergency room where he was worked up and diagnosed with acute cholecystitis. Dr. Shell was consulted and he was taken directly from the emergency room to the OR where he has undergone laparoscopic cholecystectomy for a gangrenous gallbladder.. I am now seeing him postoperatively after he has returned to the floor. He is still having some pain but overall feeling better. <VeronicaAlexander winchester - 05/19/20 17:33> Mr. Willett is a 64yo male with a hx of hypertension, pulmonary fibrosis, hyperlipidemia, type 2 diabetes, a left below the knee amputation, and prostate cancer. He presented to the emergency room today with increasing upper abdominal pain, nausea, and vomiting. He had a significant leukocytosis and a CT of his abdomen and pelvis was consistent with acute cholecystitis. His liver function test returned essentially normal. Dr. Shell was consulted and felt the patient would need a cholecystectomy. He was taken directly from the ER after having a negative COVID test for surgery. <Leigha Adames 05/19/20 16:06> [facility] History I have reviewed the patient's past medical history: Yes <Leigha Adames 05/19/20 16:06> Medical History: Reports:: Anxiety, Cancer (prostate), Depression, Diabetes Mellitus Type 2, Hyperlipidemia, Hypertension, Lung Disease (pulmonary fibrosis) Denies:: MRSA, Seizures <Leigha Adames 05/19/20 16:06> *Have you ever received a pneumonia vaccine?: No <Leigha Adames 05/19/20 16:06> *Have you received a flu vaccine this season?: No <Leigha Adames 05/19/20 16:06> Other Medical History: Reports: Arthritis, Sinus Problems, Thyroid Disease <Leigha Adames 05/19/20 16:06> Anesthesia experience/problems:: nac <Leigha Adames 05/19/20 16:06> Laterality Cases: Bilateral: Tonsillectomy, Other <Leigha Adames 05/19/20 16:06> Other Surgeries: Yes: Cancer Surgery (prostate), Colonoscopy, Thyroidectomy, Other (back surgery, neurostimulator insertion, ankle surgery, amputated left leg) <Leigha Adames 05/19/20 16:06> Amputation: Yes <Leigha Adames 05/19/20 16:06> - *Social History Smoking Status: Former smoker <Leigha Adames 05/19/20 16:06> Tobacco Type: cigarettes <Leigha Adames 05/19/20 16:06> Alcohol Intake: never <Leigha Adames 05/19/20 16:06> Substance Use Type: denies use <Leigha Adames 05/19/20 16:06> *Occupational Status:: retired <Leigha Adames 05/19/20 16:06> Housing: house <Leigha Adames 05/19/20 16:06> Household Members: spouse <Leigha Adames 05/19/20 16:06> *Travel in the last 8 weeks: None <Leigha Adames 05/19/20 16:06> - Psychiatric History Pschychiatric History:: Reports:: Anxiety, Depression <Leigha Adames 05/19/20 16:06> Family Hx:: Cancer (prostate), Coronary Artery Disease, Diabetes <Leigha Adames 05/19/20 16:06> Review of Systems - Constitutional Comments: See HPI <Alexander Martin 05/19/20 17:33> - Eyes Reports requires corrective lenses, Denies blurry vision, Denies change in vision <Alexander Martin 05/19/20 17:33> - ENT Denies dizziness, Denies difficulty swallowing, Denies nasal congestion, Denies sore throat <Alexander Martin 05/19/20 17:33> - *Cardiovascular Denies chest pain with activity, Denies shortness of breath with activity, Denies leg swelling, Denies rapid, pounding, or irregular heartbeat <Alexander Martin - 05/19/20 17:33> - *Respiratory Denies chest congestion, Denies cough
--- NOTE | 2020-05-19 18:21 | SUR.PHASEI ---
1521: breathing treatment ordered per MANUFACTURING PROCESS TECHNICIAN, 1525: Phoebe Hurst, [employer] MAN in PACU-duo neb breathing treatment given
--- NOTE | 2020-05-19 19:08 | PC.NURSE ---
report given to leon
--- NOTE | 2020-05-19 19:21 | PC.NURSE ---
10ML OUTPUT FROM ERICA DRAIN A. 15ML OUTPUT FROM ERICA DRAIN B.
[2020-05-19 20:21] LABS: POC Glucose,Bedside 232 (70-110)
[2020-05-20 01:12] VITALS: BP 147/65; PULSE 80; RESP 18; TEMP 36.7; O2SAT 91
--- NOTE | 2020-05-20 02:35 | PC.NURSE ---
A&OX4. PT HAS TOLERATED 2L OF NASAL CANNULA WELL THROUGHOUT SHIFT. AT BEDSIDE. PT HAS HAD SEVERAL COMPLAINTS OF PAIN THROUGHOUT SHIFT. HE HAS RECEIVED MORPHINE 1MG AND NORCO PER MAR. ON REASSESSMENT, PT WAS RESTING W EYES CLOSED. ERICA DRAINS WERE STRIPPED Q4 HOURS. BLOOD NOTED IN COLLECTION CHAMBERS. 4 DRESSINGS NOTED TO ABDOMEN RELATED TO LAP ISABEL. NONADHESIVE PAD AND TEGADERM IN PLACE. OLD REDDISH BROWN DRAINAGE NOTED. WILL CONTINUE TO MONITOR. URINAL EMPTIED THROUGHOUT SHIFT. CLEAR YELLOW URINE NOTED. LR INFUSING AT 150ML/HR. PT CURRENTLY RESTING IN BED. BED IN LOWEST POSITION. CALL LIGHT WITHIN REACH. VSS. NO CONCERNS AT THIS TIME. WILL CONTINUE TO MONITOR.
[2020-05-20 04:00] VITALS: BP 141/65; PULSE 82; RESP 17; TEMP 36.8; O2SAT 91
[2020-05-20 04:26] VITALS: BMI 32.5
[2020-05-20 06:00] LABS: POC Glucose,Bedside 158 (70-110)
[2020-05-20 07:06] LABS: Basophils % 0.2 % (0.1-2.0); Eosinophils # 0.1 K/mm3 (0.0-0.4); Eosinophils % 0.5 % (0.1-12.0); Hematocrit 34.6 % (42.0-52.0); Lymphocytes # 1.7 K/mm3 (0.7-4.5); Lymphocytes % 10.4 % (10-50); Mean Corpuscular HGB Conc 35.4 g/dL (31.8-35.4); Mean Corpuscular Hemoglobin 32.4 pg (27.0-31.2); Mean Corpuscular Volume 91.7 fl (80-94); Mean Platelet Volume 8.4 fl (7.4-10.4); Monocytes # 0.7 K/mm3 (0.1-1.0); Monocytes % 4.4 % (1.7-9.3); Neutrophils % 84.5 % (37.0-80.0); Platelet Count 234 K/mm3 (142-424); Red Blood Count 3.77 M/mm3 (4.60-6.20); Red Cell Distribution Width 12.9 % (11.5-17.5); White Blood Count 16.5 K/mm3 (4.8-10.8)
[2020-05-20 07:08] LABS: MANUAL DIFFERENTIAL MANUAL DIFFERENTIAL (MANUAL DIFF)
[2020-05-20 07:10] LABS: Chloride 106 mmol/L (98-107); Potassium 4.2 mmoL/L (3.5-5.1); Sodium 137 mmol/L (136-145)
[2020-05-20 07:12] LABS: Alanine Aminotransferase 134 U/L (12-78); Aspartate Amino Transferase 121 U/L (17-59); Blood Urea Nitrogen 12 mg/dl (9-20); Creatinine Clearance Estimated 110 mL/min (50-200); Estimated Glomerular Filt Rate 113 ml/min (>60); GFR (African American) 137 ML/MIN (>60)
[2020-05-20 07:13] LABS: Albumin Level 3.4 g/dl (3.5-5.0); Albumin/Globulin Ratio 1.3 (1.1-1.8); Alkaline Phosphatase 72 U/L (38-126); Anion Gap 8.2 mEq/L (5-15); Calcium 8.3 mg/dl (8.4-10.2); Carbon Dioxide 27 mmol/L (22.0-30.0); Globulin 2.7 g/dL (1.3-3.2); Glucose 183 mg/dl (74-100); Total Protein,Serum 6.1 g/dl (6.3-8.2)
[2020-05-20 07:19] LABS: Hemoglobin 12.4 g/dL (14.1-18.0)
[2020-05-20 07:39] LABS: Lymphocytes % 15 % (10-50); Monocytes % 3 % (2-9); Neutrophils % 81 % (42-76); Platelet Estimate Normal; RBC Morphology Normal; Total Cells Counted 100
--- NOTE | 2020-05-20 08:25 | HMH.ACPN2 ---
Internal Medicine - PN: Subj *Date: 05/20/20 *Time: 08:36 Interval history: No unusual complaints this morning. He is tolerating liquids with no nausea although states he feels like he has a bowling ball in his stomach . No bowel movement but passing gas. Pain is tolerable. Exam Vital signs and Labs for Last 24 Hours: Temp Pulse Resp BP Pulse Ox 98.3 F 82 17 141/65 H 91 L 05/20/20 04:00 05/20/20 04:00 05/20/20 04:00 05/20/20 04:00 05/20/20 04:00 Laboratory Results - last 24 hr 05/19/20 08:42: WBC 21.9 H*, RBC 4.64, Hgb 15.0, Hct 42.9, MCV 92.3, MCH 32.4 H, MCHC 35.0, RDW 12.9, Plt Count 272, MPV 7.4, Neut % (Auto) 91.0 H, Lymph % (Auto) 3.5 L, [place] % (Auto) 4.5, Eos % (Auto) 0.8, Baso % (Auto) 0.3, Neut # (Auto) 19.9 H, Lymph # (Auto) 0.8, [place] # (Auto) 1.0, Eos # (Auto) 0.2, Baso # (Auto) 0.1, Total Counted 100, Neutrophils % (Manual) 91 H, Lymphocytes % (Manual) 6 L, Monocytes % (Manual) 3, Platelet Estimate Normal, RBC Morphology Normal 05/19/20 08:42: Sodium 137, Potassium 3.9, Chloride 106, Carbon Dioxide 23, Anion Gap 11.9, BUN 12, Creatinine 0.70, Estimated Creat Clear 104, Estimated GFR 113, Est GFR ( Amer) 137, Glucose 255 H, Calcium 9.1, Total Bilirubin 1.3, AST 29, ALT 35, Alkaline Phosphatase 90, Total Protein 7.2, Albumin 4.2, Globulin 3.0, Albumin/Globulin Ratio 1.4, Amylase 37, Lipase 37 05/19/20 10:21: Chlamy pneumoniae PCR Not detected, Adenovirus (PCR) Not detected, B. pertussis DNA (PCR) Not detected, Coronavirus OC43 (PCR) Not detected, Coronavirus HKU1 (PCR) Not detected, Coronavirus 229E (PCR) Not detected, COVID-19 PCR Not detected, Coronavirus NL63 (PCR) Not detected, Human Metapneumovir PCR Not detected, Influenza A (H1) PCR Not detected, Influ A (H1N1/09) PCR Not detected, Influenza A (H3) PCR Not detected, Influenza Type A (PCR) Not detected, Influenza Type B (PCR) Not detected, M. pneumoniae (PCR) Not detected, Parainfluenza 1 (PCR) Not detected, Parainfluenza 2 (PCR) Not detected, Parainfluenza 3 (PCR) Not detected, Parainfluenza 4 (PCR) Not detected, RSV (PCR) Not detected, Entero/Rhino (PCR) Not detected 05/19/20 12:40: POC Glucose 144 H 05/19/20 20:07: POC Glucose 232 H 05/20/20 05:41: POC Glucose 158 H 05/20/20 06:50: WBC 16.5 H, RBC 3.77 L, Hgb 12.4 L D, Hct 34.6 L, MCV 91.7, MCH 32.4 H, MCHC 35.4, RDW 12.9, Plt Count 234, MPV 8.4, Neut % (Auto) 84.5 H, Lymph % (Auto) 10.4, [place] % (Auto) 4.4, Eos % (Auto) 0.5, Baso % (Auto) 0.2, Neut # (Auto) 14.0 H, Lymph # (Auto) 1.7, [place] # (Auto) 0.7, Eos # (Auto) 0.1, Baso # (Auto) 0.0, Total Counted 100, Neutrophils % (Manual) 81 H, Band Neutrophils % 1.0, Lymphocytes % (Manual) 15, Monocytes % (Manual) 3, Platelet Estimate Normal, RBC Morphology Normal 05/20/20 06:50: Sodium 137, Potassium 4.2, Chloride 106, Carbon Dioxide 27, Anion Gap 8.2, BUN 12, Creatinine 0.70, Estimated Creat Clear 110, Estimated GFR 113, Est GFR ( Amer) 137, Glucose 183 H D, Calcium 8.3 L, Total Bilirubin 1.0, AST 121 H D, ALT 134 H D, Alkaline Phosphatase 72, Total Protein 6.1 L, Albumin 3.4 L D, Globulin 2.7, Albumin/Globulin Ratio 1.3 I & O for Last 24 hours: Intake & Output 05/17/20 05/18/20 05/19/20 05/20/20 11:59 11:59 11:59 11:59 Intake Total 5170 / 5170 Output Total 1580 / 1580 Balance 3590 / 3590 Weight 220 lb 233 lb 4 oz Narrative: He is lying comfortably in bed. Appears in no distress. Lungs are clear anteriorly. Heart is regular. Abdomen is distended and slightly firm. There is right upper and right mid abdominal tenderness. Bowel sounds are diminished. Assessment and Plan (1) Acute cholecystitis Current visit: Yes Status: Acute Category: Medical Code(s): K81.0 - Acute cholecystitis (2) Status post cholecystectomy Current visit: Yes Status: Acute Category: Surgical Code(s): Z90.49 - Acquired absence of other specified parts of digestive tract (3) Hypertension Current visit: Yes Status: Chronic Category: M
--- NOTE | 2020-05-20 09:01 | HMH.GSPN ---
Subjective Patient reports: feels better Exam Vital signs and Labs for Last 24 Hours: Temp Pulse Resp BP Pulse Ox 98.3 F 82 17 141/65 H 91 L 05/20/20 04:00 05/20/20 04:00 05/20/20 04:00 05/20/20 04:00 05/20/20 04:00 Laboratory Results - last 24 hr 05/19/20 08:42: Total Counted 100, Neutrophils % (Manual) 91 H, Lymphocytes % (Manual) 6 L, Monocytes % (Manual) 3, Platelet Estimate Normal, RBC Morphology Normal 05/19/20 08:42: Sodium 137, Potassium 3.9, Chloride 106, Carbon Dioxide 23, Anion Gap 11.9, BUN 12, Creatinine 0.70, Estimated Creat Clear 104, Estimated GFR 113, Est GFR ( Amer) 137, Glucose 255 H, Calcium 9.1, Total Bilirubin 1.3, AST 29, ALT 35, Alkaline Phosphatase 90, Total Protein 7.2, Albumin 4.2, Globulin 3.0, Albumin/Globulin Ratio 1.4, Amylase 37, Lipase 37 05/19/20 10:21: Chlamy pneumoniae PCR Not detected, Adenovirus (PCR) Not detected, B. pertussis DNA (PCR) Not detected, Coronavirus OC43 (PCR) Not detected, Coronavirus HKU1 (PCR) Not detected, Coronavirus 229E (PCR) Not detected, COVID-19 PCR Not detected, Coronavirus NL63 (PCR) Not detected, Human Metapneumovir PCR Not detected, Influenza A (H1) PCR Not detected, Influ A (H1N1/09) PCR Not detected, Influenza A (H3) PCR Not detected, Influenza Type A (PCR) Not detected, Influenza Type B (PCR) Not detected, M. pneumoniae (PCR) Not detected, Parainfluenza 1 (PCR) Not detected, Parainfluenza 2 (PCR) Not detected, Parainfluenza 3 (PCR) Not detected, Parainfluenza 4 (PCR) Not detected, RSV (PCR) Not detected, Entero/Rhino (PCR) Not detected 05/19/20 12:40: POC Glucose 144 H 05/19/20 20:07: POC Glucose 232 H 05/20/20 05:41: POC Glucose 158 H 05/20/20 06:50: WBC 16.5 H, RBC 3.77 L, Hgb 12.4 L D, Hct 34.6 L, MCV 91.7, MCH 32.4 H, MCHC 35.4, RDW 12.9, Plt Count 234, MPV 8.4, Neut % (Auto) 84.5 H, Lymph % (Auto) 10.4, [place] % (Auto) 4.4, Eos % (Auto) 0.5, Baso % (Auto) 0.2, Neut # (Auto) 14.0 H, Lymph # (Auto) 1.7, [place] # (Auto) 0.7, Eos # (Auto) 0.1, Baso # (Auto) 0.0, Total Counted 100, Neutrophils % (Manual) 81 H, Band Neutrophils % 1.0, Lymphocytes % (Manual) 15, Monocytes % (Manual) 3, Platelet Estimate Normal, RBC Morphology Normal 05/20/20 06:50: Sodium 137, Potassium 4.2, Chloride 106, Carbon Dioxide 27, Anion Gap 8.2, BUN 12, Creatinine 0.70, Estimated Creat Clear 110, Estimated GFR 113, Est GFR ( Amer) 137, Glucose 183 H D, Calcium 8.3 L, Total Bilirubin 1.0, AST 121 H D, ALT 134 H D, Alkaline Phosphatase 72, Total Protein 6.1 L, Albumin 3.4 L D, Globulin 2.7, Albumin/Globulin Ratio 1.3 I & O for Last 24 hours: Intake & Output 05/17/20 05/18/20 05/19/20 05/20/20 11:59 11:59 11:59 11:59 Intake Total 5170 / 5170 Output Total 1580 / 1580 Balance 3590 / 3590 Weight 220 lb 233 lb 4 oz - Constitutional no acute distress - *Routine Respiratory Exam Absent: respiratory distress - *Routine Cardiovascular Exam Present: RRR - *Routine Abdominal Exam Present: soft Comments: Dressings in place. Some serosanguineous drainage noted. No erythema. Progress Note: A&P (1) Acute cholecystitis Status: Acute Assessment and plan: Overall, doing very well status post laparoscopic cholecystectomy. Continue IV antibiotics for now Advance diet/decrease IV fluids Increase ambulation Current Visit: Yes (2) Status post cholecystectomy Status: Acute Current Visit: Yes (3) Hypertension Status: Chronic Current Visit: Yes (4) Hyperlipidemia Status: Chronic Current Visit: Yes (5) Type 2 diabetes mellitus Status: Chronic Current Visit: Yes (6) Pulmonary fibrosis Status: Chronic Current Visit: Yes (7) History of prostate cancer Status: Chronic Current Visit: Yes
[2020-05-20 10:56] LABS: POC Glucose,Bedside 188 (70-110)
[2020-05-20 11:23] VITALS: BP 138/66; PULSE 76; RESP 19; TEMP 37.2; O2SAT 90
[2020-05-20 12:05] VITALS: BMI 32.7
[2020-05-20 15:23] VITALS: BP 140/63; PULSE 76; RESP 18; TEMP 36.9; O2SAT 90
[2020-05-20 16:08] LABS: POC Glucose,Bedside 256 (70-110)
--- NOTE | 2020-05-20 17:36 | HMH.ANESII ---
[facility] Anesthesia Record Part II Discharge Time: 15:52 Destination: Medical Surgical Department PACU nurse assessment reviewed?: Yes Patient Condition:: Good Anesthesia Complications:: None Swallowing reflex intact?: Yes Cyanosis?: No Blood Pressure: 155/72 Pulse Rate: 81 Temperature: 98.6 F Mental Status: Alert & Oriented Pain level:: 0 Nausea and/or vomitting:: None Intake, IV Amount: 0
[2020-05-20 17:39] VITALS: BP 155/72; PULSE 81; TEMP 37
--- NOTE | 2020-05-20 17:39 | PC.NURSE ---
ALERT AND ORIENTED X4. PAIN MEDS ADMINISTERED PER JAN. PT AMBULATED X4 IN HALLWAY WITH WITHOUT PROBLEM. UP TO CHAIR MOST OF SHIFT. TOLERATED BLAND DIET WELL. NO REPORTED BM. VSS. NO DISTRESS NOTED. SAFETY MEASURES IN PLACE, WILL CONTINUE TO MONITOR
[2020-05-20 20:00] VITALS: BP 150/73; PULSE 81; TEMP 36.8; O2SAT 88
[2020-05-20 20:45] LABS: POC Glucose,Bedside 174 (70-110)
[2020-05-21 04:00] VITALS: BP 159/71; PULSE 81; RESP 17; TEMP 36.7; O2SAT 90
--- NOTE | 2020-05-21 04:54 | PC.NURSE ---
A&O X4. PT RESTED VERY WELL WITH EYES CLOSED THIS SHIFT. MODERATE C/O PAIN AT BEGINNING OF SHIFT, RATING PAIN TO RIGHT ABDOMEN AT HIGHEST A 7/10 ON PAIN SCALE. ADMINISTERED MORPHINE X2 THUS FAR THIS SHIFT FOR PAIN RELIEF. PT NOTED RESTING WITH HIS EYES CLOSED AFTER SECOND DOSE WAS ADMINISTERED WITH NO FURTHER C/O PAIN. DSG X4 TO ABDOMEN NOTED C/D/I WITH MINIMAL SEROSANGUINEOUS DRAINAGE. REICA DRAIN X2 NOTED WITH ADEQUATE DRAINAGE THIS SHIFT. PT DENIES HAVING A BOWEL MOVEMENT THIS SHIFT THUS FAR, STATES HE DOES NOT FEEL THE URGE TO GO BUT HIS BELLY FEELS BLOATED . ABDOMEN NOTED DISTENDED, TENDER TO PALPATION, AND FIRM. INDEPENDENT USE OF URINAL AT BEDSIDE. URINE NOTED CLEAR AND BRIGHT YELLOW IN COLOR. PT TOLERATES RA WELL WITH NO C/O SOA. UPON TAKING HIS RA O2 SATS, NOTED AT 85%. PT SITTING UPRIGHT IN BED, AWAKE, TALKING WITH STAFF AT TIME OF RA. DID PLACE PT ON 1LNC THIS SHIFT, 02 SATS REMAINED >90%. NO RESPIRATORY DISTRESS NOTED. NO EDEMA NOTED. VSS. REMAINS SAFE. REFUSED SCUDS TO RLE. CALL LIGHT WITHIN REACH. WILL CONTINUE TO MONITOR.
[2020-05-21 05:00] VITALS: O2SAT 89; BMI 26.2
[2020-05-21 05:27] LABS: POC Glucose,Bedside 183 (70-110)
--- NOTE | 2020-05-21 06:04 | PC.NURSE ---
PT REPORTS HAVING A MEDIUM SIZE BOWEL MOVEMENT THIS AM. SOFT STOOL NOTED. STATES HIS STOMACH FEELS A LITTLE BETTER .
[2020-05-21 07:05] LABS: Basophils # 0.1 K/mm3 (0-0.2); Basophils % 0.5 % (0.1-2.0); Eosinophils # 0.1 K/mm3 (0.0-0.4); Eosinophils % 0.7 % (0.1-12.0); Hemoglobin 12.5 g/dL (14.1-18.0); Lymphocytes % 9.9 % (10-50); Mean Corpuscular HGB Conc 34.7 g/dL (31.8-35.4); Mean Corpuscular Hemoglobin 31.7 pg (27.0-31.2); Mean Corpuscular Volume 91.5 fl (80-94); Mean Platelet Volume 8.4 fl (7.4-10.4); Monocytes # 0.6 K/mm3 (0.1-1.0); Neutrophils # 8.5 K/mm3 (1.8-7.8); Neutrophils % 82.8 % (37.0-80.0); Platelet Count 247 K/mm3 (142-424); Red Blood Count 3.93 M/mm3 (4.60-6.20); White Blood Count 10.2 K/mm3 (4.8-10.8)
[2020-05-21 07:18] LABS: Anion Gap 8.7 mEq/L (5-15); Blood Urea Nitrogen 13 mg/dl (9-20); Calcium 8.7 mg/dl (8.4-10.2); Carbon Dioxide 28 mmol/L (22.0-30.0); Chloride 101 mmol/L (98-107); Creatinine Clearance Estimated 88 mL/min (50-200); Estimated Glomerular Filt Rate 113 ml/min (>60); GFR (African American) 137 ML/MIN (>60); Glucose 211 mg/dl (74-100); Potassium 3.7 mmoL/L (3.5-5.1); Sodium 134 mmol/L (136-145)
[2020-05-21 07:21] VITALS: BP 150/69; PULSE 84; RESP 18; TEMP 37; O2SAT 90
--- NOTE | 2020-05-21 08:49 | P.PN_ITS ---
Subjective Patient reports: feels better Exam Vital signs and Labs for Last 24 Hours: Temp Pulse Resp BP Pulse Ox 98.6 F 84 18 150/69 H 90 L 05/21/20 07:21 05/21/20 07:21 05/21/20 07:21 05/21/20 07:21 05/21/20 07:21 Laboratory Results - last 24 hr 05/20/20 10:41: POC Glucose 188 H 05/20/20 16:00: POC Glucose 256 H 05/20/20 20:08: POC Glucose 174 H 05/21/20 05:18: POC Glucose 183 H 05/21/20 06:50: WBC 10.2 D, RBC 3.93 L, Hgb 12.5 L, Hct 36.0 L, MCV 91.5, MCH 31.7 H, MCHC 34.7, RDW 13.0, Plt Count 247, MPV 8.4, Neut % (Auto) 82.8 H, Lymph % (Auto) 9.9 L, [place] % (Auto) 6.0, Eos % (Auto) 0.7, Baso % (Auto) 0.5, Neut # (Auto) 8.5 H, Lymph # (Auto) 1.0, [place] # (Auto) 0.6, Eos # (Auto) 0.1, Baso # (Auto) 0.1 05/21/20 06:50: Sodium 134 L, Potassium 3.7, Chloride 101, Carbon Dioxide 28, Anion Gap 8.7, BUN 13, Creatinine 0.70, Estimated Creat Clear 88, Estimated GFR 113, Est GFR ( Amer) 137, Glucose 211 H, Calcium 8.7 I & O for Last 24 hours: Intake & Output 05/18/20 05/19/20 05/20/20 05/21/20 11:59 11:59 11:59 11:59 Intake Total 5170 / 5170 1785 / 1785 Output Total 2230 / 2230 1530 / 1530 Balance 2940 / 2940 255 / 255 Weight 220 lb 233 lb 4 oz 187 lb - Constitutional no acute distress - *Routine Respiratory Exam Absent: respiratory distress - *Routine Cardiovascular Exam Present: RRR - *Routine Abdominal Exam Present: soft Comments: dressing in place. no erythema. ERICA drains with non-bilious fluid. Progress Note: A&P (1) Acute cholecystitis Status: Acute Current Visit: Yes (2) Status post cholecystectomy Status: Acute Current Visit: Yes (3) Hypertension Status: Chronic Current Visit: Yes (4) Hyperlipidemia Status: Chronic Current Visit: Yes (5) Type 2 diabetes mellitus Status: Chronic Current Visit: Yes (6) Pulmonary fibrosis Status: Chronic Current Visit: Yes (7) History of prostate cancer Status: Chronic Current Visit: Yes (8) Acute gangrenous cholecystitis Status: Acute Assessment and plan: Overall, doing very well status post laparoscopic cholecystectomy. Okay from surgical standpoint for discharge home with close outpatient follow- up. Jimbo-Condon drain teaching. Complete short course of antibiotics for gangrenous/purulent nature of cholecystitis. Current Visit: Yes
--- NOTE | 2020-05-21 08:57 | HMH.ACPN2 ---
Internal Medicine - PN: Subj *Date: 05/21/20 *Time: 09:09 Interval history: He rested better last night. Less pain this morning. He is tolerating his diet. He had a moderate bowel movement this morning. Exam Vital signs and Labs for Last 24 Hours: Temp Pulse Resp BP Pulse Ox 98.6 F 84 18 150/69 H 90 L 05/21/20 07:21 05/21/20 07:21 05/21/20 07:21 05/21/20 07:21 05/21/20 07:21 Laboratory Results - last 24 hr 05/20/20 10:41: POC Glucose 188 H 05/20/20 16:00: POC Glucose 256 H 05/20/20 20:08: POC Glucose 174 H 05/21/20 05:18: POC Glucose 183 H 05/21/20 06:50: WBC 10.2 D, RBC 3.93 L, Hgb 12.5 L, Hct 36.0 L, MCV 91.5, MCH 31.7 H, MCHC 34.7, RDW 13.0, Plt Count 247, MPV 8.4, Neut % (Auto) 82.8 H, Lymph % (Auto) 9.9 L, [place] % (Auto) 6.0, Eos % (Auto) 0.7, Baso % (Auto) 0.5, Neut # (Auto) 8.5 H, Lymph # (Auto) 1.0, [place] # (Auto) 0.6, Eos # (Auto) 0.1, Baso # (Auto) 0.1 05/21/20 06:50: Sodium 134 L, Potassium 3.7, Chloride 101, Carbon Dioxide 28, Anion Gap 8.7, BUN 13, Creatinine 0.70, Estimated Creat Clear 88, Estimated GFR 113, Est GFR ( Amer) 137, Glucose 211 H, Calcium 8.7 I & O for Last 24 hours: Intake & Output 05/18/20 05/19/20 05/20/20 05/21/20 11:59 11:59 11:59 11:59 Intake Total 5170 / 5170 1785 / 1785 Output Total 2230 / 2230 1530 / 1530 Balance 2940 / 2940 255 / 255 Weight 220 lb 233 lb 4 oz 187 lb Narrative: He is alert and oriented. Appears in no distress. Chest with coarse breath sounds but otherwise clear. Abdomen is slightly distended but soft with appropriate postoperative tenderness in the right upper quadrant. Surgical wounds look clean. Assessment and Plan (1) Acute cholecystitis Current visit: Yes Status: Acute Category: Medical Code(s): K81.0 - Acute cholecystitis (2) Status post cholecystectomy Current visit: Yes Status: Acute Category: Surgical Code(s): Z90.49 - Acquired absence of other specified parts of digestive tract (3) Hypertension Current visit: Yes Status: Chronic Category: Medical Code(s): I10 - Essential (primary) hypertension (4) Hyperlipidemia Current visit: Yes Status: Chronic Category: Medical Code(s): E78.5 - Hyperlipidemia, unspecified (5) Type 2 diabetes mellitus Current visit: Yes Status: Chronic Category: Medical Code(s): E11.9 - Type 2 diabetes mellitus without complications (6) Pulmonary fibrosis Current visit: Yes Status: Chronic Category: Medical Code(s): J84.10 - Pulmonary fibrosis, unspecified (7) History of prostate cancer Current visit: Yes Status: Chronic Category: Medical Code(s): Z85.46 - Personal history of malignant neoplasm of prostate (8) Acute gangrenous cholecystitis Current visit: Yes Status: Acute Category: Medical Code(s): K81.0 - Acute cholecystitis - Assessment and plan all Dx Assessment and Plan for all problems:: White blood count is normal. He has been cleared by surgery for discharge. Will discharge home today and follow-up with Dr. Shell in 1 week. ERICA drains remain in place. He will be continued on oral antibiotics for additional 5 days.
--- NOTE | 2020-05-22 16:22 | HMH.DCSUM ---
General - General Admission date:: 05/19/20 <Alexander Martin - 05/23/20 08:10> 05/19/20 <ValorieNadegeMiri - 05/22/20 16:45> Discharge date: 05/21/20 <Miri Eugene - 05/22/20 16:45> HPI HPI: Cesar states he started 3 days ago with right upper quadrant pain that radiated to his chest and into his mid back. This was associated intermittently with nausea and vomiting. He was able to eat and drink some over the past 3 days. Bowels have been moving but somewhat irregular. He started running a fever and his pain worsened. Thus he presented to the emergency room where he was worked up and diagnosed with acute cholecystitis. Dr. Shell was consulted and he was taken directly from the emergency room to the OR where he underwent laparoscopic cholecystectomy for a gangrenous gallbladder.. He was seen postoperatively by Dr. Martin after patient returned to the floor. He was still having some pain but overall felt better. <ValorieNadegeMiri - 05/22/20 16:45> Hospital Course Hospital Course: Patient was seen by Dr. Shell, surgeon, in the emergency room. He was taken to surgery at which time Dr. Shell performed a laparoscopic cholecystectomy. The patient was found to have severe acute cholecystitis with patchy gangrenous changes. He had 2 Jimbo-Condon drains placed in the gallbladder fossa. The following day patient was tolerating liquids with no nausea although he felt like he had a bowling ball in his stomach . He was passing gas.. Pain was tolerable. White count had improved. Blood pressure also improved. Blood sugars were stable on sliding scale. He was continued on IV fluids and IV antibiotics. Out of bed activity was encouraged. He had some serosanguineous drainage noted but no erythema. He continued to feel better and did rest better. He had a moderate bowel movement on 05/21/2020. White blood cell count was normal. He was tolerating his diet. On this date he was cleared by surgery for discharge. Disposition: patient was discharged home in stable and satisfactory condition. He was to follow-up with Dr. Paniagua in 1 week. J.P drains were to remain in place. He was to continue with oral antibiotics for an additional 5 days. Diet was to be low fat and carbohydrate counting; meds as per discharge med list <Miri Eugene - 05/22/20 16:45> Objective Vital signs: Temp Pulse Resp BP Pulse Ox 98.6 F 84 18 150/69 H 90 L 05/21/20 07:21 05/21/20 07:21 05/21/20 07:21 05/21/20 07:21 05/21/20 07:21 <Alexander Martin - 05/23/20 08:10> Temp Pulse Resp BP Pulse Ox 98.6 F 84 18 150/69 H 90 L 05/21/20 07:21 05/21/20 07:21 05/21/20 07:21 05/21/20 07:21 05/21/20 07:21 <Miri Eugene - 05/22/20 16:45> Narrative: Exam Vital signs and Labs for Last 24 Hours: Temp Pulse Resp BP Pulse Ox 98.6 F 84 18 150/69 H 90 L 05/21/20 07:21 05/21/20 07:21 05/21/20 07:21 05/21/20 07:21 05/21/20 07:21 Laboratory Results - last 24 hr 05/20/20 10:41: POC Glucose 188 H 05/20/20 16:00: POC Glucose 256 H 05/20/20 20:08: POC Glucose 174 H 05/21/20 05:18: POC Glucose 183 H 05/21/20 06:50: WBC 10.2 D, RBC 3.93 L, Hgb 12.5 L, Hct 36.0 L, MCV 91.5, MCH 31.7 H, MCHC 34.7, RDW 13.0, Plt Count 247, MPV 8.4, Neut % (Auto) 82.8 H, Lymph % (Auto) 9.9 L, [place] % (Auto) 6.0, Eos % (Auto) 0.7, Baso % (Auto) 0.5, Neut # (Auto) 8.5 H, Lymph # (Auto) 1.0, [place] # (Auto) 0.6, Eos # (Auto) 0.1, Baso # (Auto) 0.1 05/21/20 06:50: Sodium 134 L, Potassium 3.7, Chloride 101, Carbon Dioxide 28, Anion Gap 8.7, BUN 13, Creatinine 0.70, Estimated Creat Clear 88, Estimated GFR 113, Est GFR ( Amer) 137, Glucose 211 H, Calcium 8.7 I & O for Last 24 hours: Intake & Output 05/18/20 05/19/20 05/20/20 05/21/20 11:59 11:59 11:59 11:59 Intake Total 5170 / 5170 1785 / 1785 Output Total 2230 / 2230 1530 / 1530 Balance 2940 / 2940 255 / 255 Weight 220 lb 233 lb 4 oz 187 lb Narrativ
== END 2020-05-21 09:45 | disposition home or self-care (01) ==
LOC: ER 10:04 → 2ND 13:39
PROVIDERS: Surgery; Admitting Provider Family Medicine; Emergency Provider Family Medicine; PCP Family Medicine; Visit Provider Family Medicine
PROC: 0FT44ZZ Resection of Gallbladder, Percutaneous Endoscopic Approach (ICD-10-PCS; CPT 47562; principal; 2020-05-19 12:35)
DX: K81.0 Acute cholecystitis (principal); K82.A1 Gangrene of gallbladder in cholecystitis; E11.9 Type 2 diabetes mellitus without complications; Z79.4 Long term (current) use of insulin; J84.10 Pulmonary fibrosis, unspecified; Z85.46 Personal history of malignant neoplasm of prostate; I10 Essential (primary) hypertension; E78.5 Hyperlipidemia, unspecified; Z87.891 Personal history of nicotine dependence; Z88.0 Allergy status to penicillin; Z88.2 Allergy status to sulfonamides; Z89.512 Acquired absence of left leg below knee; Z79.899 Other long term (current) drug therapy
CPT/HCPCS: 47562; 36415; 74176; 80048; 80053; 82150; 82962; 83690; 85007; 85025; 87581; 87633; 87798; 94640; 94761; 96365; 96375; 99284; G0378; J1335; J2405; J2710

== ENCOUNTER → 2022-12-10 14:54 | Outpatient (CLI) | payer MEDICARE, SELFPAY ==
--- NOTE | 2022-12-10 14:59 | XR_ITS ---
FINAL REPORT CLINICAL HISTORY: FB IN SOFT TISSUE. Patient gave himself a diabetic insulin shot and needle came off of syringe on right side of abdomen. Area is between right lower ribs and right iliac crest area. He did not see needle on end of syringe post injection. FINDINGS: A single view of the abdomen was obtained. There is a nonobstructive bowel gas pattern. There are no abnormally dilated loops of small bowel. There is a moderate amount of retained stool. The skin surface is not imaged. No foreign body is identified. IMPRESSION: No foreign body identified. Reviewed, Interpreted and Dictated by Ismael Ontiveros III, MD Transcribed by Cuba Garcia Authenticated and [facility]
== END ==
PROVIDERS: PCP Family Medicine; Visit Provider Family Medicine
DX: M79.5 Residual foreign body in soft tissue (principal)
CPT/HCPCS: 74018

== ENCOUNTER → 2023-09-08 13:37 | Outpatient (CLI) | payer MEDICARE, SELFPAY | PROVIDERS: PCP Family Medicine; Visit Provider Family Medicine | DX: G47.33 Obstructive sleep apnea (adult) (pediatric) (principal); R06.83 Snoring | CPT/HCPCS: G0399 ==